=== PATIENT | female | born 2005 | race Caucasian/White ===

== ENCOUNTER 2023-12-01 21:17 | Inpatient (IN) | payer BC, SELFPAY ==
[2023-12-01 16:56] VITALS: BP 114/85
[2023-12-01 19:06] VITALS: BP 104/71
--- NOTE | 2023-12-01 19:10 | ED.GENMED ---
History of Present Illness
General
Chief Complaint: Abdominal Symptoms
Source: patient and family
Exam Limitations: none
Time Seen by Provider: 12/01/23 18:35
Nursing documentation reviewed up to this point in time: agreed with
Travel History
Have you had any contact with someone who has COVID-19?: No
Do you have any symptoms of coronavirus? Fever > 100 degrees, chills, cough, shortness of breath, sore throat, loss of taste or smell, muscle aches, or headache?: No
History of Present Illness
History of Present Illness:
Patient to ED with complaint of weigh loss, inability to tolerate tube feedings. Patient states she has had GI issues for many years, told it was IBS. Sep 2022 her GI symptoms worsened following COVID dx. She was evaluated by GI in [place] in the
spring. Dx with gastroparesis. By summer 2022 she was not tolerating food so NGT was placed for feedings. In the fall of 2022 she began having issues with the NGT. SHe was then given JG tube. She is supposed to by infusing 50ml/hr 15/05
but over the past few weeks she has been unable to tolerate that amt. SHe is now at 30ml/hr but for 20hr/day max. SHe reports that the feedings feel like they are not passing thru her GI tract. SHe reports abdominal discomfort for most of the day
and nausea. No vomiting. 2weeks ago she was seen in [place] by her GI provider. Tube placement was checked, normal. She was set up to meet with pathology assistant and her formula was switched. She is still not tolerating her infusions. SHe has an appt at
the end of Nov at [facility]. Family is concerned about her rapid weight loss. She was 145lbs last spring, 122 in the fall, 101lbs now. Brought to ED by family. [facility] Ambrocio Danlos syndrome, ACOSTA, dysautonomia
Past History
Past History
ED Past Medical History: Other (gastroparesis, POTTA, ambrocio danlos syndrome, dysautonomia)
ED Past Surgical History: Other (Port, JG tube)
Social History
Tobacco: Non-smoker
Alcohol: None
Drug: None
Review of Systems
Review of Systems
Allergies reviewed?: Yes
All Other Systems: ROS reviewed and negative except as documented in HPI and ROS
Constitutional: Reports weight loss and fatigue
EENT: Reports no symptoms
Respiratory: Reports no symptoms
Cardiac: Reports no symptoms
ABD/GI: Reports nausea and other (JG tube feeding intolerance)
: Reports no symptoms
Musculoskeletal: Reports no symptoms
Skin: Reports no symptoms
Neurological: Reports weakness
Psychiatric: Reports no symptoms
Phy Exam
General Physical Exam
General Presentation: mild distress
General age: appears stated age
General Skin: warm and dry
General Habitus: frail
General Mental: alert
Gastrointestinal Exam
Gastrointestinal Exam: soft, no organomegaly and non distended
Palpation: generalized: Minimal tenderness
Musculoskeletal Exam
Musculoskeletal Exam: full ROM and neuro vasc intact
Skin Exam
Skin Exam: normal color and warm/dry
Psychiatric Exam
Psychiatric Exam: depressed
Course
Orders/Labs/Results
Orders:
Orders
12/01/23 Dinner
Tube Feeding
At Your Request: Full Participation
Tube Feeding Product: Tube Feeding Per RD
Initial continuous pump rate (mL/hr): 30 ml/hr
Additional Tube Feeding Instructions: RiverW[employer] 1.5 Peptide
Comment: Patient may use tube feeds from home pending Dietary eval / recommendations
12/01/23 19:09
0.9% Sodium Chloride 500 ml [Nss] 500 ml IV BOLUS
12/01/23 19:39
Complete Blood Count/With Diff Urgent
Comprehensive Metabolic Panel Urgent
Cortisol, Random Urgent
Comment: ADD ON
Free T4 Urgent
Magnesium Urgent
Prothrombin Time Urgent
TSH Reflex To Free T4 Urgent
12/01/23 20:44
Admit/Transfer Patient As Directed
Co-Sign Provider:
Level of Care: Inpatient admission
Assign to:: Medical/Surgical
Physician / Group: Shawn
Diagnosis: Protein-Calorie Malnutrition, Gastroparesis
Reason for Hospitalization: Protein-Calorie Malnutrition, Gastroparesis
Expected length of stay greater than two midnights?: Yes
ELOS- Estimated Length of Stay in days: 3
I certify the patient meets the requirements for IP care: Yes
12/01/23 20:52
Code Status As Directed
Resuscitation Status: Full Code
12/01/23 22:01
Acetaminophen [Tylenol] 650 mg TUBE Q4HPRN PRN
Famotidine [Pepcid] 40 mg TUBE HS
Ketorolac [Toradol] 15 mg IV Q6HPRN PRN
Lactated Ringers [Lr] 1,000 ml IV 80 mls/hr
Ondansetron Injectable [Zofran] 4 mg IV Q6HPRN PRN
12/01/23 22:01
DIETARY CONSULT Routine
Reason for Consult: Malnutrition, Tube Feeds
GASTROINTESTINAL CONSULT Routine
Consulting Provider: Aure Santoro
Was physician already notified: Yes
Reason for consult: Gastroparesis, FTT
NUTRITIONAL SUPPORT TEAM Routine
Activity As Directed
Activity Level: Ambulate
With Assistance
Gastrointestinal Tubes As Directed
Type: J/G tube
To suction?: No
To straight drainage/gravity?: Yes: G-port to gravity drainage
Irrigate tube?: Yes
Irrigant: Tap Water
Frequency: Q4H
Amount in mls: 40
Irrigation Directions: Irrigate Q4H and PRN
I/O [Intake/ Output] As Directed
Frequency: Per unit guidelines
Nursing to Place Non Medication Order As Directed
Physician Order: Free water flushes via J-tube: 40ml/hr 7 x daily and with meds.
Orthostatic Vital Signs As Directed
Orthostatic VS Frequency: BID
Pneumatic Compression Sleeves As Directed
Type: Knee high
Vital Signs As Directed
Frequency: Per unit guidelines
Weight As Directed
Frequency: Daily
Ot Eval And Treat Routine
PT Consult [Pt Eval And Treat] Routine
Activity Level: Ambulate
With Assistance
DX Deep Vein Thrombosis Video Routine
12/02/23 06:36
Complete Blood Count/No Diff IN AM
Prealbumin (Transthyretin) IN AM
12/02/23 08:00
Buspirone [Buspar] 20 mg TUBE BID
Pantoprazole [Protonix IV] 40 mg IV DAILY
12/02/23 12:00
desvenlafaxine succinate [Pristiq] 0 mg TUBE DAILY
prucalopride [Motegrity] 0 mg TUBE DAILY
Abnormal Lab Results
12/01/23
19:39
WBC 4.2 L 10^3/uL
(4.8-10.8)
MCH 31.5 H pg
(27.0-31.0)
MPV 11.2 H fL
(7.4-10.4)
BUN 21 H mg/dl
(7-17)
Magnesium 2.5 H mg/dl
(1.6-2.3)
AST 42 H U/L
(14-36)
ALT 67 H U/L
(0-35)
Albumin 5.2 H g/dl
(3.5-5.0)
TSH (Reflex) 5.04 H uIU/ml
(0.47-4.68)
Free T4 0.71 L ng/dl
(0.78-2.19)
12/01/23 19:39
12/01/23 19:39
Vital Signs
Initial and Last Documented VS:
Initial Vital Signs
Temp Pulse Resp BP Pulse Ox
97.7 F 120 18 114/85 98
12/01/23 16:56 12/01/23 16:56 12/01/23 16:56 12/01/23 16:56 12/01/23 16:56
Last Documented Vital Signs
Temp Pulse Resp BP Pulse Ox
98.3 F 81 19 109/64 97
12/02/23 14:54 12/02/23 14:54 12/02/23 14:54 12/02/23 14:54 12/02/23 14:54
*Critical Care Note
Total Time (30-74mins, 75-104mins- exclusive of procedures): Not Applicable
Update Note
Update Note:
Patient to ED for eval of significant weight loss since May. Not tolerating JG tube feedings. Originally treated in [place]. Has appointment with [facility] at the end of November but does not feel that she can wait that long to be seen.
Increasingly weak. Will admit to hospitalist for failure to thrive.
ED Attending Note
-
Portions of this chart may have been created with voice recognition software.� Occasional wrong word or��sound alike� substitutions may have occurred due to the inherent limitations of voice recognition software.
Discharge Plan
Departure
Patient Disposition: Admit
Date of Disposition: 12/01/23
Time of Disposition: 19:25
Presentation/result/management discussed w/ accepting MD/DO: Hospitalist
Condition: Fair
Covid-19: Not Applicable
Discharge Problem:
Failure to thrive
Interventions
Interventions:
*Risk Screen - Suicide Last Done: 12/01/23 22:40
*General Assessment Last Done: 12/01/23 19:01
*Neglect/Abuse Screening Last Done: 12/01/23 19:02
ED- Fall Risk Assessment Last Done: 12/01/23 19:57
*ED COVID-19 Vaccine History Last Done: 12/01/23 22:40
*Nursing Disposition Last Done: 12/01/23 21:59
JR-Iclekf-Lqodnmcpuf Assessment Last Done: 12/01/23 19:06
Discharge Date and Time
Discharge Date/Time: 12/01/23 21:59
[2023-12-01] MEDS: NSS 500 IV (19:40)
[2023-12-01 19:54] LABS: % Basophils 0.5 % (0-2); % Eosinophils 1.4 % (0-6); % Lymphocytes 48.7 % (20.5-51.1); % Monocytes 5.7 % (1.7-9.3); % Neutrophils 43.7 % (42.2-75.2); Absolute Eosinophils 0.1 10^3/uL (0-0.7); Absolute Lymphocytes 2.1 10^3/uL (1.2-3.4); Absolute Monocytes 0.2 10^3/uL (0.1-0.6); Absolute Neutrophils 1.9 10^3/uL (1.4-6.5); Hematocrit 42.9 % (37.0-47.0); Hemoglobin 15.2 g/dL (12.0-16.0); Mean Corp Hgb Conc. 35.4 g/dL (33.0-37.0); Mean Corpuscular Hgb 31.5 pg (27.0-31.0); Mean Corpuscular Volume 88.8 fL (81.0-99.0); Mean Platelet Volume 11.2 fL (7.4-10.4); Nucleated Red Blood Cells % 0 %; Platelet Count 176 10^3/uL (130-400); Red Blood Cell Count 4.83 10^6/uL (4.20-5.40); Red Cell Dist. Width 11.9 % (11.5-14.5); White Blood Cell Count 4.2 10^3/uL (4.8-10.8)
[2023-12-01 19:59] LABS: INR 0.97; PT 12.7 Sec (11.4-14.6)
[2023-12-01 20:17] LABS: ALT (SGPT) 67 U/L (0-35); AST (SGOT) 42 U/L (14-36); Albumin 5.2 g/dl (3.5-5.0); Alkaline Phosphatase 123 U/L (38-126); Blood Urea Nitrogen 21 mg/dl (7-17); Calcium 10.2 mg/dl (8.4-10.2); Carbon Dioxide 24 mmol/L (22-30); Chloride 107 mmol/L (98-107); Glucose 85 mg/dl (70-99); Magnesium 2.5 mg/dl (1.6-2.3); Potassium 3.9 mmol/L (3.5-5.1); Sodium 138 mmol/L (135-145); Total Bilirubin 0.8 mg/dl (0.2-1.3); Total Protein 8.1 g/dl (6.3-8.2); eGFR > 60.00
--- NOTE | 2023-12-01 20:59 | HPS.HSE ---
Family Physician
-
Family Physician: NOT KNOW UNKNOWN - PT DOES
Chief Complaint
-
Abd Pain, Nausea, Weight Loss
History of Present Illness
Patient is a 18y F with PMH significant for gastroparesis, dysautonomia, POTS and mast cell activation syndrome who presents to ED complaining of difficulty tolerating tube feeds and ongoing weight loss. Patient states that she has had ongoing
issues with GI symptoms / gastroparesis for some time. Her symptoms became much more severe in May 2023 when she was evaluated in [place] where she is going to school. Patient initially had NG for tube feeds that was then changed to J-G tube.
She has tried multiple medications for GI motility including Motegrity (currently on her second trial of this), Reglan and erythromycin (adverse effects) and mestinon (unclear reason for this). Over the past month or so, patient has noted increased
difficulty tolerating her tube feeds. She complains of abdominal discomfort, nausea. She has had to decrease her rate from 50cc/h to 30cc/h which she is tolerating - but still with intermittent pain and nausea. Her G port is continuously open to
drainage to help with these symptoms. Multiple tube studies have showed tube in good position; however, they have also noted reflux of dye into stomach and not distal movement.
Patient has continued to lose weight - now down about 20 lbs since initial issues in May.
She changed her tube feed formulation 2 weeks ago in an attempt to improve her symptoms - without evident results as of yet.
She does not have emesis or regular diarrhea. Her bowel movements are erratic - occasionally firm / formed and occasionally loose. BM every 4-10 days. She takes lactulose occasionally for constipation.
Patient has plans for evaluation at [facility] with both GI / motility specialists as well as dysautonomia / POTS specialists later this month.
She presented to the ED today with her parents with concerns re: ongoing weight loss despite current efforts.
Medical History
Past Medical History
Past Medical History: Reports Other
Additional Past Medical History:
Dysautonomia
Mast Cell Activation Syndrome
Ambrocio Danlos Syndrome
POTS
Gastroparesis
Past Surgical History: Reports Other
Additional Past Surgical History:
J-G Tube Placement
R ACW Port Placement
Dental Implants
Social History
Tobacco: Non-smoker
Alcohol: None
Drug: None
Family History
Family History: Other (Sister: Celiac Disease)
Allergies / Home Medications
Allergies reflects when Allergies were last updated in [facility].
Home Medications with original date entered in [facility]
Allergy/Medication List:
Allergies
Allergy/AdvReac Type Severity Reaction Status Date / Time
adhesive tape Allergy Rash Verified 12/01/23 17:07
Home Medications
buspirone 10 mg tablet 20 mg feeding tube BID 12/01/23
desvenlafaxine succinate 100 mg tablet,extended release 24 hr (Pristiq) 100 mg PO DAILY 12/01/23
famotidine 40 mg tablet (Pepcid) 40 mg feeding tube HS 12/01/23
lactulose 10 gram/15 mL oral solution 10 g feeding tube BID PRN constipation 12/01/23
prucalopride 2 mg tablet (Motegrity) 2 mg feeding tube DAILY 12/01/23
Review of Systems
-
History Source: Patient and Family
A 12 point ROS was completed and negative except as noted: Yes
Constitutional: Reports Weight Loss and Fatigue; Denies Fever, Night Sweats or Chills
EENT: Denies Sore Throat
Respiratory: Denies Cough or Trouble Breathing
Cardiac: Denies Chest Pain or Palpitations
Abdomen/GI: Reports Abdominal Pain, Nausea, Diarrhea and Constipated; Denies Vomiting, Bloody Stools or Black Stools
: Denies Dysuria or Frequency
Musculoskeletal: Denies Joint Pain or Edema
Neurological: Reports Dizzy; Denies Headache
Psych: Denies Depression or Anxiety
Physical Exam
Vital Signs
Vital Signs
Temp Pulse Resp BP Pulse Ox
97.7 F 89 16 104/71 100
12/01/23 16:56 12/01/23 19:06 12/01/23 19:06 12/01/23 19:06 12/01/23 19:06
Physical Exam
General: Other (Thin 18y F in no acute distress.)
HEENT: Moist mucous membranes and PERRLA
Respiratory: Clear; No Wheezes, Rales or Rhonchi
Cardiac: S1/S2 and Regular Rhythm; No Murmur
GI: Soft, Non Distended and Other (Mildly tender in epigastric region. J-G tube site OK without erythema, induration, discharge. Bowel sounds are present but diminished throughout.)
Musculoskeletal: No Clubbing, No Cyanosis and No Edema
Neuro: AO x 3
Laboratory Results
-
12/01/23 19:39
12/01/23 19:39
Laboratory Results
PT 12.7 Sec (11.4-14.6) 12/01/23 19:39
INR 0.97 12/01/23 19:39
Total Bilirubin 0.8 mg/dl (0.2-1.3) 12/01/23 19:39
AST 42 U/L (14-36) H 12/01/23 19:39
ALT 67 U/L (0-35) H 12/01/23 19:39
Alkaline Phosphatase 123 U/L (38-126) 12/01/23 19:39
Impression/Plan
-
A/P: Patient is a 18y F with PMH significant for gastroparesis / dysautonomia, POTS and maast cell activation syndrome who presents to ED for evaluation of weight loss / malnutrition.
Severe Protein-Calore Malnutrition
Dysautonomia / Gastroparesis
- Admit for further evaluation and treatment.
- Labs are all unremarkable despite nutrition concerns.
- Patient continues to lose weight however - event with TF support.
- Has failed medication trials for GI motility (Motegrity, Reglan, erythromycin).
- GI evaluation for any additional recommendations.
- Dietary evaluation for tube feed recommendations - though issue with tolerance seems primarily one of GI functionality.
- Follow daily labs / lytes.
- Supportive care including pain control, antiemetics, etc.
- Continue G-tube to gravity for treatment of ongoing bloating / nausea.
- Will eventually need follow with GI motility specialists at [facility] as planned.
Mast Cell Activation
Ambrocio Danlos
POTS
- Stable. Continue current management.
- IVF support for orthostasis symptoms.
- PT / OT evaluations.
- Follow for any new / worsening symptoms.
Anxiety / Depression
- Stable. Continue Pristiq.
DVT Prophylaxis: SCDs
Code Status: Full
[2023-12-01 21:19] VITALS: BP 110/74
[2023-12-01 21:44] VITALS: BP 93/65; BMI 16.0
[2023-12-01] MEDS: LR 1000 IV (22:58)
[2023-12-01] MEDS: PEPCID 40 MG TUBE (22:59)
[2023-12-01 23:02] LABS: TSH Reflex To Free T4 5.04 uIU/ml (0.47-4.68)
[2023-12-01 23:13] VITALS: BP 102/67; BP 105/74; BP 107/75; PULSE 108; PULSE 69; PULSE 91
--- NOTE | 2023-12-01 23:30 | PTCARENOTE ---
Pt arrived from ED to 3W, room 317/2. Walked from the stretcher to bed. Pt AAOx3, has continues G-J tube feeding @ 30ml/hr. Pt was oriented to the unit. Call [facility] within reach. Plan of care ongoing.
[2023-12-01 23:40] LABS: Cortisol, Random 6.9 ug/dl
[2023-12-02 00:09] LABS: Free T4 0.71 ng/dl (0.78-2.19)
[2023-12-02 04:05] VITALS: BMI 15.9
--- NOTE | 2023-12-02 06:13 | PTCARENOTE ---
Pt refusing all care, states 'I can do myself'. Refused G-J tube flash and bag drainage, said she will do it herself. Pt AAOx3 and independent with empting the drains and irrigation of the tube. Education provided about importance of tube flushing
and drainage management.
[2023-12-02 06:57] LABS: Hematocrit 39.2 % (37.0-47.0); Hemoglobin 13.6 g/dL (12.0-16.0); Mean Corp Hgb Conc. 34.7 g/dL (33.0-37.0); Mean Corpuscular Hgb 31.2 pg (27.0-31.0); Mean Corpuscular Volume 89.9 fL (81.0-99.0); Platelet Count 151 10^3/uL (130-400); Red Blood Cell Count 4.36 10^6/uL (4.20-5.40); Red Cell Dist. Width 11.9 % (11.5-14.5); White Blood Cell Count 4.2 10^3/uL (4.8-10.8)
[2023-12-02 07:00] VITALS: BP 99/62
[2023-12-02 07:18] LABS: ALT (SGPT) 57 U/L (0-35); AST (SGOT) 39 U/L (14-36); Albumin 4.1 g/dl (3.5-5.0); Alkaline Phosphatase 101 U/L (38-126); Blood Urea Nitrogen 21 mg/dl (7-17); Calcium 9.7 mg/dl (8.4-10.2); Carbon Dioxide 24 mmol/L (22-30); Chloride 105 mmol/L (98-107); Direct Bilirubin 0.4 mg/dl (0.0-0.4); Estimated Creatinine Clearance 109 ml/min; Glucose 93 mg/dl (70-99); Sodium 140 mmol/L (135-145); Total Bilirubin 0.7 mg/dl (0.2-1.3); Total Protein 6.4 g/dl (6.3-8.2); eGFR > 60.00
[2023-12-02 07:32] LABS: Prealbumin (Transthyretin) 27.3 mg/dl (17.6-36.0)
--- NOTE | 2023-12-02 07:48 | CON.GI ---
Addendum entered and electronically signed by Aure Santoro MD 12/02/23 13:31:
I saw and examined the patient.
The APPLICATIONS ENGINEERING MANAGER or PA's note was reviewed and I agree with the note.
Comment: 18-year-old female with a complicated medical history including chronic GI dysmotility with nausea, failure to thrive, constipation, history of POTS, Ambrocio-Danlos, mast cell activation, dysautonomia presenting with abdominal discomfort,
nausea, unable to tolerate GJ feeds and constipation.
As per patient and family, she has long history of constipation even as a child into adolescence, recurrent abdominal pain, nausea, bloating. Saw GI, treated with MiraLAX with initial improvement, then had diarrhea and had to hold off on MiraLAX.
Celiac ruled out with serologies and biopsies as sister with celiac disease. Currently she is a student in [place], follows up with GI team at [facility]. Had been having nausea, weight loss, constipation since September 2022 again, EGD and colonoscopy
May/June 2023 unremarkable as per patient. Other testing include gastric emptying which apparently showed gastroparesis but no other motility testing done.(Anorectal manometry, sits marker or whole gut motility study). June 2023, put
on GJ tube, initially on Osmolite 1.5 but changed to [employer] 1.5, asked to take 50 mL an hour of continuous feeds but only able to tolerate 30 mL an hour with some intermittent breaks. Continued nausea but no vomiting. Takes Motegrity for
constipation, has a bowel movement every 4 to 10 days, tried Linzess, Amitiza, Trulance without improvement in symptoms but with more abdominal cramping. Tried Reglan, erythromycin, had side effects. In the last 2 weeks lost about 13 pounds.
As per patient recent tube check on Monday by IR showed GJ normal position.
-Chronic GI dysmotility with nausea, failure to thrive and constipation
Symptoms now leading to significant weight loss
Tube feeds currently at 30 cc an hour with periodic breaks, goal of 50 cc an hour of [employer] 1.5
Patient not able to gain weight as she feels nauseous and has quite a bit of residue that comes out through the venting G port.
At this time, she is a candidate for TPN.
I will reach out to her GI team and dietitian on Monday so that they can arrange for TPN in [place] where she resides.
GI DrRj, Dr. Waterman-[phone]. Fellow Dr. JeffersBppolcr-[phone]
Dietitian, John DanielsMxrlh-[phone]
Also gets IV hydration through the port in the right side of the chest.
She has an appointment with [facility] December 19 which she is going to keep up.
I gave all her records to be scanned into the [id number] to the community health educator.
-Constipation
Currently on Motegrity, MiraLAX gave her abdominal bloating, she sometimes takes lactulose as well.
Abdomen not distended at this time. Will get abdominal x-ray and if there is not much of stool burden, can continue her Motegrity and lactulose regimen.
-Elevated transaminases which seems to be chronic since 2022 as per patient's family
I do not have records of her workup for abdominal ultrasound for underlying liver disease panel.
I will update her GI team regarding her LFTs so that they can work it up when they see her.
They will have to take this into consideration when they do the TPN.
Original Note:
Consultation
-
Date/Time Consultation Requested: 12/01/2023
Date/Time Consultation Performed: 12/02/2023 @ 08:00
Requesting Provider: Dr. Escobar
Performing Provider: JENY Agustin; Dr. Santoro
Reason for Consultation: Gastroparesis, FTT
Medical History
Chief Complaint / HPI
Chief Complaint: abdominal pain, nausea, weight loss
History of Present Illness:
The patient is a 18-year-old female with a past medical history significant for gastroparesis, dysautonomia, POTS, Ambrocio-Danlos syndrome, mast cell activation syndrome, chronic constipation, who presented to the emergency room with complaints of
abdominal pain, nausea, and weight loss. We are being asked to evaluate for the presenting symptoms. Upon review of prior records, the patient has had ongoing problems with motility and gastroparesis. She Reports that she has had ongoing GI
problems since she was a child with recurrent stomach viruses, constipation, and other GI symptoms. She notes that over the summer she had been having ongoing symptoms of nausea, vomiting, and constipation to severe degree. She reports being
hospitalized in [facility] where she goes to school where she was diagnosed with intestinal dysmotility and gastroparesis. She had initially had an NG tube for dietary repletion, and subsequently an NJ tube but this was causing her a
multitude of problems and she continued with weight loss despite nutrition. She notes about 40 pounds of weight loss since May. She reports further workup although details unclear, and was evaluated again requiring hospitalization in June.
She ultimately had a surgical GJ tube placed in July. She continued on tube feedings at that time through her J port, but did often get distended and developed subsequent nausea and vomiting which required venting from the G port. She reports
that her weight loss had stabilized but she was not gaining weight despite nutrition. She reports being on Reglan and erythromycin in the past for her gastroparesis but she had adverse effects from these and these were subsequently discontinued.
She does take Zofran as needed but tries to limit this as it worsens her constipation. At baseline she does have a bowel movement every 4 to 10 days despite use of Motegrity and as needed lactulose. She tries to use lactulose daily but this does
cause her to have distention of her abdomen with associated nausea. She reports having switched feeding formulas in the past from Osmolite to [employer] as she was not tolerating but did not see any change in this. Her goal tube feeding rate is 50
cc/h but she has had to reduce this to 30 cc/h due to abdominal distention and nausea. She does run her tube feeds 24 hours a day through her J port. She notes she has had evaluation of her GJ tube several times which confirmed adequate placement
but they reported to her she has had reflux of contrast back into her G tube during the studies. She has tried to do intake food orally but is unable to and only is able to sip on water. She reports leading up to her hospitalization she had lost
about 13 pounds over the course of 2 weeks. She reports small formed bowel movements every 4 days on average with no diarrhea, melena, or hematochezia. She reports nausea on a daily basis but no overt vomiting at this time. She reports receiving
IV fluids reviewed her right chest wall port 3 times weekly for her diagnosis of POTS. Her last endoscopy and colonoscopy were done this past year. She notes EGD revealed signs of reflux otherwise was normal. Her colonoscopy in May was also
normal. She has a family history of sister who has celiac disease and she had subsequent negative testing in the past. She denies alcohol use. She denies use of NSAIDs. Routine labs in the ER essentially unrevealing, Aside from mildly elevated
transaminases. No imaging for review. She was subsequently admitted for further evaluation by GI and nutrition.
Past Medical History
Past Medical History: Other (POTS, dysautonomia, gastroparesis, Ambrocio-Danlos syndrome, mast cell activation syndrome, chronic constipation)
Past Surgical History: Other (Surgical GJ tube placement, dental implants, Right CW port)
Social History
Tobacco: Non-Smoker
Alcohol: None
Drug: None
Living: With Family
Family History
Family History: Other (sister- celiac disease)
Allergies / Home Medications
Allergy/AdvReac Type Severity Reaction Status Date / Time
adhesive tape Allergy Rash Verified 12/01/23 17:07
Medication Instructions Recorded
buspirone 10 mg tablet 20 mg feeding tube BID 12/01/23
desvenlafaxine succinate 100 mg 100 mg PO DAILY 12/01/23
tablet,extended release 24 hr
(Pristiq)
famotidine 40 mg tablet (Pepcid) 40 mg feeding tube HS 12/01/23
lactulose 10 gram/15 mL oral 10 g feeding tube BID PRN 12/01/23
solution constipation
prucalopride 2 mg tablet 2 mg feeding tube DAILY 12/01/23
(Motegrity)
Review of Systems
-
History Source: Patient
Constitutional: Reports No Symptoms
EENT: Reports No Symptoms
Respiratory: Reports No Symptoms
Cardiac: Reports No Symptoms
Abdomen/GI: Reports Abdominal Pain, Nausea, Vomiting and Constipated
: Reports No Symptoms
Musculoskeletal: Reports No Symptoms
Skin: Reports No Symptoms
Neurological: Reports No Symptoms
Endocrine: Reports No Symptoms
Vital Signs
Temp Pulse Resp BP Pulse Ox
97.8 F 69 18 102/67 100
12/01/23 23:13 12/01/23 23:13 12/01/23 23:13 12/01/23 23:13 12/01/23 23:13
Physical Exam
Exam
General: Well Developed, Well Nourished, Comfortable and Other (thin appearing female in NAD)
HEENT: Normocephalic, Anicteric and Atraumatic
Respiratory: Clear
Cardiac: S1/S2 and Regular Rhythm
GI: Soft, Non Distended, Flat and Other (LUQ GJ tube, bilious drainage from G tube drainage bag)
Rectal: Deferred by Provider
Skin: Warm and Dry
Neuro: Awake, Alert and Oriented
Psych: Calm
Results
WBC 4.2 10^3/uL (4.8-10.8) L 12/02/23 06:36
Hgb 13.6 g/dL (12.0-16.0) 12/02/23 06:36
Hct 39.2 % (37.0-47.0) 12/02/23 06:36
MCV 89.9 fL (81.0-99.0) 12/02/23 06:36
Plt Count 151 10^3/uL (130-400) 12/02/23 06:36
Absolute Neuts (auto) 1.9 10^3/uL (1.4-6.5) 12/01/23 19:39
PT 12.7 Sec (11.4-14.6) 12/01/23 19:39
INR 0.97 12/01/23 19:39
Sodium 140 mmol/L (135-145) 12/02/23 06:36
Potassium 4.0 mmol/L (3.5-5.1) 12/02/23 06:36
Chloride 105 mmol/L (98-107) 12/02/23 06:36
Carbon Dioxide 24 mmol/L (22-30) 12/02/23 06:36
BUN 21 mg/dl (7-17) H 12/02/23 06:36
Creatinine 0.6 mg/dL (0.6-1.0) 12/02/23 06:36
Calcium 9.7 mg/dl (8.4-10.2) 12/02/23 06:36
Total Bilirubin 0.7 mg/dl (0.2-1.3) 12/02/23 06:36
AST 39 U/L (14-36) H 12/02/23 06:36
ALT 57 U/L (0-35) H 12/02/23 06:36
Alkaline Phosphatase 101 U/L (38-126) 12/02/23 06:36
Diagnostic Image Results: None
Prior GI Procedures:
EGD: June in [place], showed reflux per pt
Colonoscopy: May in [place], per pt was normal
Assessment / Plan
-
The patient is a 18-year-old female with a past medical history significant for gastroparesis, dysautonomia, POTS, Ambrocio-Danlos syndrome, mast cell activation syndrome, who presented to the emergency room with complaints of abdominal pain, nausea,
and weight loss. We are being asked to evaluate for the presenting symptoms. Undergoing care in [facility], local to the area came in for evaluation of ongoing weight loss and chronic GI symptoms including nausea, vomiting, and abdominal
distention and pain. She has a recent diagnosis of intestinal dysmotility and gastroparesis as of May of last year with ongoing weight loss despite placement of a surgical GJ tube for nutrition. She has had subsequent imaging of her GJ tube and
evaluation with interventional radiology confirming adequate placement but despite this has had ongoing problems with her nutrition. No significant electrolyte abnormalities on routine labs. No imaging for review.
Problem list:
-abdominal pain
-nausea, vomiting, weight loss
-hx gastroparesis s/p GJ tube placement
-hx mast cell activation syndrome
-hx Ambrocio Danlos syndrome
-dysautonomia
-elevated AST/ALT
Recommendations:
-Etiology of current symptoms likely 2/2 motility disorder with gastroparesis v less likely obstructive process v other.
-At this time will need to optimize her bowel regimen as she has likely severe intestinal dysmotility of unclear etiology.
-Will get an obstruction series to evaluate for degree of constipation/rule out any obstructive process
-If no obstructive process will trial adding Linzess daily along with Motegrity daily to promote bowel movements which may help with UGI symptoms
-Try to avoid lactulose as this will likely cause increased bloating/abdominal distention
-PRN Zofran for nausea (adverse effects with reglan and erythromycin per pt)
-Nutrition consult for TF recommendations
-Agree with evaluation at a tertiary center which is upcoming at [place] later this month.
-To review case further for other recommendations with Dr. Santoro.
-Monitor LFT's. Consider US abdomen, but ?secondary to poor nutritional state
-Will follow
-
-
Thank you for consultation and allowing me to participate in the patient's care. Please call the cement or concrete finishing supervisor GI physician during the after hours with any questions or concerns.
--- NOTE | 2023-12-02 10:25 | W.PN.HOSP.TC ---
Today's Communication/Plan
-
Await GI and nutritional input.
Continue the hydration in meantime.
Check phosphorus.
Check orthostatic blood pressure readings.
Obtain old information on all the previous testing/imaging/specialist evaluation from family
Assessment / Plan
Assessment / Plan
A/P:� Patient is a 18y F with PMH significant for gastroparesis / dysautonomia, POTS , Ambrocio-Danlos syndrome and mast cell activation syndrome who presents to ED for evaluation of weight loss / malnutrition.
Severe Protein-Calore Malnutrition
Dysautonomia / Gastroparesis
�- Admitted for further evaluation and treatment.
�- Labs are all unremarkable despite nutrition concerns.
�- Patient continues to lose weight however - event with TF support.
�- Has failed medication trials for GI motility (Motegrity, Reglan, erythromycin).
�- GI evaluation for any additional recommendations.
�- Dietary evaluation for tube feed recommendations - though issue with tolerance seems primarily one of GI functionality.
�- Follow daily labs / lytes.
�- Supportive care including pain control, antiemetics, etc.
�- Continue G-tube to gravity for treatment of ongoing bloating / nausea.
�- Will eventually need follow with GI motility specialists at [place] as planned.
Mast Cell Activation
Ambrocio Danlos
POTS
�- Stable.� Continue current management.
�- IVF support for orthostasis symptoms.
�- PT / OT evaluations.
�- Follow for any new / worsening symptoms.
Anxiety / Depression
�- Stable.� Continue Pristiq.
Had long discussion with pt and family at bedside.
Patient is a resident of [place]. She was evaluated by multiple specialities and had various kinds of testing and she was given about diagnosis. Since her GI issues continues she got a referral to see specialist at [place] and has an appointment on
December 19. They have a family in [place] so they moved here as it would help her with her [facility] assessment visits. Father is going to get information for us today.
GI physician she is going to see at [facility]
DR Catina Leon
DVT Prophylaxis:� SCDs
Code Status:� Full
Total time spent on today's encounter was 52 minutes which included time spent in counseling the patient/family regarding diagnosis and treatment plan as listed above, goals of care, and symptom management. Case was discussed with nursing staff,
specialists, . All labs and imaging personally reviewed by me. Remainder the time spent in detailed review of previous records, lab data, imaging, and other medical provider documentation.
Anticipated Discharge: > 48 hours
Subjective/Interval History
-
Date of Service: December 02, 2023
Patient admitted for poor tube feed tolerance and weight loss.
Patient is a resident of [facility] where in she was evaluated and was given diagnosis of gastroparesis, dysautonomia, POTS, mast cell activation syndrome.
She has GT tube and have been having intolerance issues-change promotility agents, they changed tube feed formulation and still having issues with tolerance of nutrition and ongoing weight loss of 20 pounds since May 2023 when she had worsening
of her symptoms.
She also has chronic constipation.
She apparently had once gastric emptying test few years ago but not repeated. She had endoscopy colonoscopy with biopsies. She has GJ tube placed.
Regarding POTS and dysautonomia she had evaluation by senior program analyst and had multiple studies.
Mast cell activation syndrome also was given to her but no bone marrow biopsies and she is not sure if she had tryptase level checked but she states she had a a lot of blood test done.
Based on her hyperextension index she was also given Ambrocio-Danlos syndrome diagnosis.
Objective Data
-
Labs:
Laboratory Results
12/02/23
06:36
WBC 4.2 L
Hgb 13.6
Hct 39.2
Plt Count 151
Sodium 140
Potassium 4.0
Chloride 105
Carbon Dioxide 24
BUN 21 H
Creatinine 0.6
Glucose 93
Calcium 9.7
Total Bilirubin 0.7
AST 39 H
ALT 57 H
Alkaline Phosphatase 101
Vital Signs:
Vital Signs
Temp Pulse Resp BP Pulse Ox
97.5 F 69 19 99/62 99
12/02/23 07:00 12/02/23 07:00 12/02/23 07:00 12/02/23 07:00 12/02/23 07:00
I&O
12/01/23 12/02/23 12/03/23
06:59 06:59 06:59
Output Total 300 / 300
Balance -300 / -300
Review of Systems
-
Constitutional: Denies Fever or Chills
EENT: Denies Sore Throat
Respiratory: Denies Trouble Breathing
Cardiac: Denies Chest Pain
Abdomen/GI: Reports Abdominal Pain, Nausea, Vomiting and Constipated
Genitourinary: Denies Dysuria
Neuro: Reports Dizzy (on and off)
Physical Exam
-
General: No Apparent Distress
HEENT: Moist Mucous Membranes
Respiratory: Clear to Auscultation
Cardiac: Regular Rhythm and S1/S2
GI: Soft, Nontender, Nondistended, Normal Bowel Sounds and Peg Tube
Musculoskeletal: Other
Neuro: AO x 3
Psych: Calm; Negative Confused
Data Reviewed
-
Labs: Labs Reviewed by me
[2023-12-02 11:00] VITALS: BP 91/64
--- NOTE | 2023-12-02 11:06 | PTOTSP ---
CHART REVIEWED. SPOKE WITH RN. PATIENT CONTACTED BEDSIDE ALONG WITH HER FAMILY. PATIENT REPORTS INDEPENDENCE WITH MOBILITY REQUIRING NO ACUTE CARE SKILLED THERAPY AT THIS TIME. WILL DISCHARGE FROM P.T. SERVICES.
[2023-12-02 11:22] VITALS: BP 104/68; BP 91/64; BP 91/80; PULSE 100; PULSE 116; PULSE 71
[2023-12-02 11:36] LABS: Free T3 2.96 pg/ml (2.77-5.27)
[2023-12-02] MEDS: BUSPAR 20 MG TUBE (11:51)
[2023-12-02] MEDS: NON-FORMULARY ITEM 2 MG TUBE (11:52)
[2023-12-02] MEDS: NON-FORMULARY ITEM 100 MG TUBE (11:53)
[2023-12-02] MEDS: LR 1000 IV (12:06)
[2023-12-02 14:54] VITALS: BP 109/64
--- NOTE | 2023-12-02 15:42 | CM ---
Patient seen at bedside, mother and friend also present. Patient states that she lives in [facility] [place] [facility] and came up here to be with family and look into a program with [facility]. Patient mother confirmed that PCP is Dr. Moffett in [place] [phone] and
that they use the [facility] in [place] [phone]. Patient normally independent and attending College. Patient family here for supports also normally live in [place] but came here to stay with family for proximity to [place]. CM will continue to follow for
discharge planning needs.
Plan; home with VN vs home with no needs.
== END 2023-12-02 16:54 | disposition left against medical advice (07) | DRG 392 ==
LOC: 3 WEST ACU 21:17
PROVIDERS: Nurse Practitioner; ADMITTING PHYSICIAN Hospitalist; ATTENDING PHYSICIAN Internal Medicine; CONSULT PHYSICIAN Internal Medicine Gastroenterology; EMERGENCY PHYSICIAN Emergency Medicine
DX: K31.84 Gastroparesis (principal); E46 Unspecified protein-calorie malnutrition; Z68.1 Body mass index [BMI] 19.9 or less, adult; Q79.60 Ehlers-Danlos syndrome, unspecified; R62.7 Adult failure to thrive; D89.40 Mast cell activation, unspecified; G90.A Postural orthostatic tachycardia syndrome [POTS]; F32.A Depression, unspecified; F41.9 Anxiety disorder, unspecified; G90.1 Familial dysautonomia [Riley-Day]; K30 Functional dyspepsia; R14.0 Abdominal distension (gaseous)
CPT/HCPCS: 74022; 80053; 82248; 82533; 83735; 84134; 84439; 84443; 84481; 85025; 85027; 85610; 96360; 99285